=== PATIENT | male | born 1995 | race Caucasian/White ===

== ENCOUNTER 2016-12-25 13:50 | Emergency (ER) | payer OTHER ==
[~2016-12-25] VITALS: Ht 180.3 cm; Wt 85.4 kg
[2016-12-25 13:52] VITALS: Ht 180.3 cm; Wt 85.4 kg
[2016-12-25] MEDS ORDERED: PRED20TA2 PO (14:04)
[2016-12-25] MEDS ORDERED: KETOROLAC TROMETHAMINE 30 MG/ML VIAL IV STA (14:35)
[2016-12-25] MEDS ORDERED: SODIUM CHLORIDE 0.9% 1000ML 1,000 ML IV STA (14:35)
[2016-12-25] MEDS ORDERED: HYDROCODONE/HOMATROPINE SYRUP 5MG/1.5MG 5ML UDP PO STA (14:35)
--- NOTE | 2016-12-25 14:36 | EMERGENCY ROOM VISIT NOTE ---
History Report prepared by Scribe: Carmella Mansfield Under the Supervision of: Dr. Fawad Coker M.D. First contact with patient: 14:09 Chief Complaint: FEVER Stated Complaint: FEVER, VOMITING, HEAD PAIN/CONGESTION, DIARRHEA Nursing Triage Summary: Pt. reports a fever that started Monday, vomiting started and diarrhea started on Monday. States unable to keep down fluids or solids, has blood with "spitting up or coughing" and "general pain from throat and up". History of Present Illness The patient is a 21 year old male who presents to the Emergency Room with complaints of an intermittent fever for the past 5 days. He states he was "sitting at home working" when he first noticed his fever. He has not taken any medication for the fever yet. He also complains of vomiting that started 4 days ago, and diarrhea that started 3 days ago. He has been unable to keep down fluids or solids and reports he has been "spitting up" and "coughing up" blood. He denies any hematemesis. The patient also admits to a sore throat, cough and headache. He still has full ROM of his neck and can touch his chin to his chest , but reports his neck is "sore" when he moves it from side to side. He denies any acute abdominal pain. The patient denies any recent heavy ETOH use. He reports he experienced a tear in his esophagus 2 years ago after a sinus infection and reports he has experienced multiple sinus infections in his life. Source of History: patient Onset: 5 days [employer] Position: other (global) Timing: other (persistent) Associated Symptoms: + headache, + sorethroat, + cough, + neck pain, + vomiting, + diarrhea, No abdominal pain Review of Systems See HPI for pertinent positives & negatives. A total of 10 systems reviewed and were otherwise negative. Past Medical & Surgical Medical Problems: (1) Heart murmur (2) Sinus infection Social History Smoking Status: Never Smoker Smokeless Tobacco Use: No Alcohol Use: occasionally Drug Use: none Marital Status: single Housing Status: lives with roommate Occupation Status: [employer] Current/Historical Medications Scheduled Doxycycline Monohydrate (Monodox), 100 MG PO BID Hydrocodone W/ Homatropine (Hycodan 5/1.5MG 5 Ml), 5 ML PO HS Ondasetron Odt (Zofran Odt), 4 MG SL Q6H Prednisone (Prednisone Tab), 20 MG PO BID Allergies Coded Allergies: No Known Allergies (Unverified , 12/25/16) Physical Exam Vital Signs Date Time Temp Pulse Resp B/P (MAP) Pulse Ox O2 Delivery O2 Flow Rate FiO2 12/25/16 18:41 36.8 89 18 136/71 97 12/25/16 17:57 87 22 134/75 94 Room Air 12/25/16 16:31 98 22 131/64 96 Room Air 12/25/16 15:43 100 12/25/16 15:39 36.8 102 22 136/73 96 Room Air 12/25/16 15:39 96 Room Air 12/25/16 13:52 37.7 116 18 141/67 97 Room Air Physical Exam GENERAL: Patient is a healthy-appearing well-nourished 21 year old male. HEAD: Normocephalic atraumatic EYES: Ocular movements intact pupils equal and react to light OROPHARYNX: mucous membranes are moist no exudates present no erythema or edema present NECK: Supple no nuchal rigidity. No evidence of meningitis or encephalitis on exam. CHEST: Good equal expansion LUNGS: Clear and equal to auscultation CARDIAC: Normal S1 and S2 ABDOMEN: Soft nontender no guarding BACK: No CVA tenderness EXTREMITIES: No pain upon palpation normal muscle strength in all groups no clubbing cyanosis or edema NEURO: Patient is following commands is answering questions appropriately. Alert and oriented x3 Cranial Nerves 2-12 grossly intact Medical Decision & Procedures ER Provider Diagnostic Interpretation: X-ray results as stated below per interpretation by me and the radiologist: CHEST ONE VIEW PORTABLE CLINICAL HISTORY: Shortness of breath COMPARISON STUDY: No previous studies for comparison. FINDINGS: The cardiac and mediastinal contours are normal. There is no evidence of focal pulmonary consolidation. There is no evidence of failure. No pleural effusions are visualized. IMPRESSION: No active disease in the chest. Electronically signed by: Osiel Iqbal M.D. 12/25/2016 3:01 PM Laboratory Results 12/25/16 15:20 Red Blood Count 4.83, Mean Corpuscular Volume 83.9, Mean Corpuscular Hemoglobin 29.2, Mean Corpuscular Hemoglobin Concent 34.8, Mean Platelet Volume 9.8, Neutrophils (%) (Auto) 62.2, Lymphocytes (%) (Auto) 14.4, Monocytes (%) (Auto) 22.8, Eosinophils (%) (Auto) 0.2, Basophils (%) (Auto) 0.2, Neutrophils # (Auto ) 5.29, Lymphocytes # (Auto) 1.23, Monocytes # (Auto) 1.94, Eosinophils # (Auto ) 0.02, Basophils # (Auto) 0.02 12/25/16 15:20 Test 12/25/16 15:20 12/25/16 16:20 White Blood Count 8.52 K/uL (4.8-10.8) Red Blood Count 4.83 M/uL (4.7-6.1) Hemoglobin 14.1 g/dL (14.0-18.0) Hematocrit 40.5 % (42-52) Mean Corpuscular Volume 83.9 fL (80-100) Mean Corpuscular Hemoglobin 29.2 pg (25-34) Mean Corpuscular Hemoglobin Concent 34.8 g/dl (32-36) Platelet Count 240 K/uL (130-400) Mean Platelet Volume 9.8 fL (7.4-10.4) Neutrophils (%) (Auto) 62.2 % Lymphocytes (%) (Auto) 14.4 % Monocytes (%) (Auto) 22.8 % Eosinophils (%) (Auto) 0.2 % Basophils (%) (Auto) 0.2 % Neutrophils # (Auto) 5.29 K/uL (1.4-6.5) Lymphocytes # (Auto) 1.23 K/uL (1.2-3.4) Monocytes # (Auto) 1.94 K/uL (0.11-0.59) Eosinophils # (Auto) 0.02 K/uL (0-0.5) Basophils # (Auto) 0.02 K/uL (0-0.2) RDW Standard Deviation 38.8 fL (36.4-46.3) RDW Coefficient of Variation 12.7 % (11.5-14.5) Immature Granulocyte % (Auto) 0.2 % Immature Granulocyte # (Auto) 0.02 K/uL (0.00-0.02) Anion Gap 9.0 mmol/L (3-11) Est Creatinine Clear Calc Drug Dose 112.1 ml/min Estimated GFR () 109.9 Estimated GFR (Non- 94.8 BUN/Creatinine Ratio 8.8 (10-20) Calcium Level 8.6 mg/dl (8.5-10.1) Total Bilirubin 0.7 mg/dl (0.2-1) Direct Bilirubin 0.2 mg/dl (0-0.2) Aspartate Amino Transf (AST/SGOT) 23 U/L (15-37) Alanine Aminotransferase (ALT/SGPT) 28 U/L (12-78) Alkaline Phosphatase 63 U/L (45-117) Total Creatine Kinase 114 U/L (39-308) Total Protein 8.3 gm/dl (6.4-8.2) Albumin 3.7 gm/dl (3.4-5.0) Lyme Disease IgG Antibody POS (NEG) Monoscreen NEG (NEG) Influenza Type A (RT-PCR) Neg for Influ A (NEG) Influenza Type A Antigen Neg for Influ A (NEG) Influenza Type B Antigen Neg for Influ B (NEG) Influenza Type B (RT-PCR) Neg for Influ B (NEG) Urine Color DK YELLOW Urine Appearance CLEAR (CLEAR) Urine pH 5.5 (4.5-7.5) Urine Specific [place] 1.023 (1.000-1.030) Urine Protein TRACE (NEG) Urine Glucose (UA) NEG (NEG) Urine Ketones TRACE (NEG) Urine Occult Blood 2+ (NEG) Urine Nitrite NEG (NEG) Urine Bilirubin NEG (NEG) Urine Urobilinogen NEG (NEG) Urine Leukocyte Esterase NEG (NEG) Urine WBC (Auto) 1-5 /hpf (0-5) Urine RBC (Auto) 0-4 /hpf (0-4) Urine Hyaline Casts (Auto) 5-10 /lpf (0-5) Urine Epithelial Cells (Auto) 5-10 /lpf (0-5) Urine Bacteria (Auto) NEG (NEG) Labs reviewed by ED physician. Medications Administered Medications (Trade) Dose Ordered Sig/Rola Route Start Time Stop Time Status Last Admin Dose Admin Sodium Chloride 1,000 ml @ 999 mls/hr Q1H1M STAT IV 12/25/16 14:35 12/25/16 15:35 DC 12/25/16 15:25 999 MLS/HR Ketorolac Tromethamine (Toradol Inj) 30 mg NOW STAT IV 12/25/16 14:35 12/25/16 14:38 DC 12/25/16 15:25 30 MG Hydrocodone Bit/ Homatropine Methylb (Hycodan Syrup) 5 ml NOW STAT PO 12/25/16 14:35 12/25/16 14:38 DC 12/25/16 15:26 5 ML Acetaminophen (Tylenol Tab) 1,000 mg NOW STAT PO 12/25/16 15:48 12/25/16 15:49 DC 12/25/16 16:14 1,000 MG Ondansetron HCl (Zofran Inj) 4 mg NOW STAT IV 12/25/16 15:48 12/25/16 15:49 DC 12/25/16 16:14 4 MG Miscellaneous Medication (Gi Cocktail) 24 ml NOW STAT PO 12/25/16 15:58 12/25/16 16:00 DC 12/25/16 15:58 24 ML Famotidine (Pepcid Tab) 20 mg NOW STAT PO 12/25/16 15:58 12/25/16 16:00 DC 12/25/16 16:15 20 MG Sucralfate (Carafate Tab) 1 gm NOW STAT PO 12/25/16 15:58 12/25/16 16:00 DC 12/25/16 16:15 1 GM Al Hydroxide/Mg Hydroxide (Maalox Susp) 30 ml STK-MED ONCE .ROUTE 12/25/16 16:09 12/25/16 16:10 DC 12/25/16 16:41 30 ML Lidocaine HCl (Viscous Lidocaine 2% Soln) 20 ml STK-MED ONCE .ROUTE 12/25/16 16:09 12/25/16 16:10 DC 12/25/16 16:42 20 ML Ceftriaxone Sodium (Rocephin Inj) 1 gm NOW STAT IV 12/25/16 16:14 12/25/16 16:15 DC 12/25/16 16:42 1 GM Ceftriaxone Sodium (Rocephin Inj) 1 gm NOW STAT IV 12/25/16 17:22 12/25/16 17:24 DC 12/25/16 17:50 1 GM Hydrocodone Bit/ Homatropine Methylb (Hycodan Elix Homepack 5/1.5MG/ 5ML) 1 homepack UD ONCE PO 12/25/16 17:45 12/25/16 17:46 DC 12/25/16 18:40 1 [facility] ED Course 1423: Past medical records reviewed. The patient was evaluated in room B5. A complete history and physical examination was performed. 1430: I offered to call the patients parents to let them know he is here. The patient declined and stated "my Mom already knows I'm here". 1435: Hycodan Syrup 5 ml PO, Toradol 30 mg IV, NSS 1000 ml @ 999 mls/hr IV. Medical Decision Medication Reconciliation: I attest that I have personally reviewed the patient' s current medication list. Blood Pressure Screening: Patient was found to have an elevated blood pressure and was referred to their primary care doctor for recheck and further treatment Prior records/ancillary studies reviewed. Triage Nursing notes reviewed. The patient's history was concerning for fever. Differential diagnosis: Etiologies such as viral syndrome, otitis, pharyngitis, pneumonia, influenza, meningitis, urinary tract infection, sepsis, bacteremia, as well as others were entertained. This is a 21-year-old male who presents emergency department complaining of throat pain. I will note that the patient is able to swallow his own saliva and denies any chest pain or shortness of breath. In the emergency department IV was established, patient given normal saline bolus, Toradol, Zofran. He is also given a GI cocktail Pepcid and Carafate. Repeat examination revealed improvement patient's symptoms. The patient does not have an elevation in his white blood count cell count has a normal hemoglobin. The patient has no evidence of meningitis encephalitis on examination. He was also given Hycodan for his throat pain. The patient has a negative mono negative flu however he has a positive IgG Lyme titer. I discussed this with the patient who was not aware of this. Based on this the patient was given 2 g of Rocephin and I will start the patient on doxycycline pending western blot analysis. I stressed the need to follow up with infectious disease with the patient. I do believe he is well enough to be discharged home. I did offer to call this patient's parents however he refused. Patient was in agreement with the treatment plan. Impression Primary Impression: Fever Additional Impression: Pharyngitis Scribe Attestation The scribe's documentation has been prepared under my direction and personally reviewed by me in its entirety. I confirm that the note above accurately reflects all work, treatment, procedures, and medical decision making performed by me. Departure Information Dispostion Home / Self-Care Prescriptions Hydrocodone W/ Homatropine (HYCODAN 5/1.5MG 5 ML) 1 Syp Syp 5 ML PO HS, #120 ML Prov: Fawad Coker MD 12/25/16 Ondasetron Odt (ZOFRAN ODT) 4 Mg Tab 4 MG SL Q6H for Nausea, #6 TAB Prov: Fawad Coker MD 12/25/16 Doxycycline Monohydrate (Monodox) 100 Mg Cap 100 MG PO BID for 21 Days, #42 CAP Prov: Fawad Coker MD 12/25/16 Referrals No Doctor, Assigned (PCP) Patient Instructions My [facility] Problem Qualifiers Primary Impression: Fever Fever type: unspecified Qualified Codes: R50.9 - Fever, unspecified Additional Impression: Pharyngitis Pharyngitis/tonsillitis etiology: unspecified etiology Qualified Codes: J02.9 - Acute pharyngitis, unspecified
--- NOTE | 2016-12-25 15:02 | DIAGNOSTIC IMAGING REPORT ---
CHEST ONE VIEW PORTABLE CLINICAL HISTORY: Shortness of breath COMPARISON STUDY: No previous studies for comparison. FINDINGS: The cardiac and mediastinal contours are normal. There is no evidence of focal pulmonary consolidation. There is no evidence of failure. No pleural effusions are visualized.[ IMPRESSION: No active disease in the chest. Electronically signed by: Osiel Iqbal M.D. 12/25/2016 3:01 PM Dictated Date/Time: 12/25/2016 3:01 PM
[2016-12-25 15:39] VITALS: O2SAT 96
[2016-12-25] MEDS ORDERED: ACETAMINOPHEN 500 MG TAB PO STA (15:48)
[2016-12-25] MEDS ORDERED: ONDANSETRON INJ 2 MG/ML 2 ML VIAL IV STA (15:48)
[2016-12-25 15:51] LABS: BASO % 0.2 %; BASO ABS # 0.02 K/uL (0-0.2); COMPLETE YES; EOS % 0.2 %; HEMATOCRIT 40.5 % (42-52); IG% 0.2 %; LYMPH % 14.4 %; LYMPH ABS # 1.23 K/uL (1.2-3.4); MEAN CELL VOLUME 83.9 fL (80-100); MEAN CORPUSCULAR HEMOGLOBIN 29.2 pg (25-34); MEAN CORPUSCULAR HGB CONC 34.8 g/dl (32-36); MEAN PLATELET VOLUME 9.8 fL (7.4-10.4); MONO % 22.8 %; NEUT % 62.2 %; PLATELET COUNT 240 K/uL (130-400); RED BLOOD COUNT 4.83 M/uL (4.7-6.1); WHITE BLOOD COUNT 8.52 K/uL (4.8-10.8)
[2016-12-25] MEDS ORDERED: SUCRALFATE 1 GM TAB PO STA (15:58)
[2016-12-25] MEDS ORDERED: GI COCKTAIL PO STA (15:58)
[2016-12-25] MEDS ORDERED: FAMOTIDINE 20 MG TAB PO STA (15:58)
[2016-12-25 16:09] LABS: BUN/CREATININE RATIO 8.8 (10-20); CALCIUM 8.6 mg/dl (8.5-10.1); CREATININE 1.1 mg/dl (0.60-1.40); POTASSIUM 3.6 mmol/L (3.5-5.1)
[2016-12-25] MEDS ORDERED: LIDOCAINE HCL 2% VISC SOLN 20 ML UDC ONE (16:09)
[2016-12-25] MEDS ORDERED: ALUMINUM/MAGNESIUM SUSP 30 ML UDC ONE (16:09)
[2016-12-25] MEDS ORDERED: CEFTRIAXONE SOD INJ 1 GM ADDVIAL IV STA ×2 (16:14→17:22)
[2016-12-25 16:39] LABS: URINE APPEARANCE CLEAR (CLEAR); URINE COLOR DK YELLOW; URINE NITRITE NEG (NEG); URINE PH 5.5 (4.5-7.5); URINE SPECIFIC GRAVITY 1.023 (1.000-1.030); UROBILINOGEN NEG (NEG)
[2016-12-25 16:41] LABS: MANUAL MICROSCOPIC REQUIRED? NO; REVIEW REQ? NO; URINE BILIRUBIN NEG (NEG)
[2016-12-25 17:13] LABS: LYME DISEASE AB IGM NEG (NEG)
[2016-12-25 17:18] LABS: LYME DISEASE AB IGG POS (NEG)
[2016-12-25] MEDS ORDERED: ONDA4TAB10 SL (17:33)
[2016-12-25] MEDS ORDERED: DOXY100C76 PO (17:33)
[2016-12-25] MEDS ORDERED: HYDR5SYP11 PO (17:43)
[2016-12-25] MEDS ORDERED: HYCODAN 60ML BOTTLE HOMEPACK PO ONE (17:45)
[2016-12-25 18:41] VITALS: BP 136/71; PULSE 89; TEMP 36.8; O2SAT 97
[2016-12-25 19:00] LABS: INFLUENZA A PCR Neg for Influ A (NEG); INFLUENZA B PCR Neg for Influ B (NEG)
--- NOTE | 2016-12-27 15:51 | Pharmacy Progress Note ---
ED Pharmacist Culture FollowUp Date of Service: Dec 27, 2016. Patient's back-up Grp A Strep Cx finalized today and is growing Group C Strep. He was seen on 12/25 for c/o fever, NVD, cough and throat pain. He was dx with Lyme dz based upon stage one IgG Ab positive test, Western Blot is still pending. He was discharged with a 21 day course of Doxycycline 100mg PO BID. He was also dx with pharnygitis that day - likely viral, but if bacterial Doxy may also cover. Grp C Strep can cause pharyngitis indistinguishable from GAS pharyngitis. However this organism can also colonize the oral mucosa and is not always pathogenic, thus isolation from throat cx is of uncertain significance. Doxycycline is not the drug of choice to treat Grp C Strep, however it may cover the organism as per the references I consulted, resistance rates have been reported at ~17%. I contacted the patient at home to discuss his symptoms. He states the sore throat is gone. He is still taking the Doxycycline. He feels improved since the day he visited the ER. Based upon this I believe no further action is required from ER perspective. Advised the patient to continue the Doxycycline as the confirmatory test for Lyme Dz is still pending.
[2016-12-29 11:05] LABS: 18KDIGG BAND NONREACTIVE (NONREACTIVE); 23KDIGG BAND NONREACTIVE (NONREACTIVE); 23KDIGM BAND NONREACTIVE (NONREACTIVE); 28KDIGG BAND NONREACTIVE (NONREACTIVE); 30KDIGG BAND NONREACTIVE (NONREACTIVE); 39KDIGG BAND NONREACTIVE (NONREACTIVE); 39KDIGM BAND NONREACTIVE (NONREACTIVE); 41KDIGG BAND REACTIVE (NONREACTIVE); 41KDIGM BAND NONREACTIVE (NONREACTIVE); 45KDIGG BAND NONREACTIVE (NONREACTIVE); 58KDIGG BAND NONREACTIVE (NONREACTIVE); 66KDIGG BAND REACTIVE (NONREACTIVE); 93KDIGG BAND NONREACTIVE (NONREACTIVE)
[2016-12-30 19:31] LABS: EHRLICHIA CHAFF IGG AB <1:64 (<1:64); EHRLICHIA CHAFF IGM AB <1:20 (<1:20)
== END 2016-12-25 18:40 | disposition home or self-care (01) ==
LOC: C.EDB 13:52
DX: R50.9 Fever, unspecified (principal); J02.9 Acute pharyngitis, unspecified; R01.1 Cardiac murmur, unspecified

== ENCOUNTER → 2017-01-24 | Outpatient (CLI) | payer OTHER ==
[~2017-01-24] MED LIST: ONDA4TAB10 SL; PRED20TA2 PO
[2017-01-24 15:52] LABS: LYME DISEASE AB IGM NEG (NEG)
[2017-01-24 15:53] LABS: LYME DISEASE AB IGG POS (NEG)
[2017-01-31 14:55] LABS: 18KDIGG BAND REACTIVE (NONREACTIVE); 23KDIGG BAND REACTIVE (NONREACTIVE); 23KDIGM BAND REACTIVE (NONREACTIVE); 28KDIGG BAND NONREACTIVE (NONREACTIVE); 30KDIGG BAND NONREACTIVE (NONREACTIVE); 39KDIGG BAND REACTIVE (NONREACTIVE); 39KDIGM BAND NONREACTIVE (NONREACTIVE); 41KDIGG BAND REACTIVE (NONREACTIVE); 41KDIGM BAND NONREACTIVE (NONREACTIVE); 45KDIGG BAND NONREACTIVE (NONREACTIVE); 58KDIGG BAND REACTIVE (NONREACTIVE); 66KDIGG BAND REACTIVE (NONREACTIVE); 93KDIGG BAND NONREACTIVE (NONREACTIVE)
[2017-02-01 15:38] LABS: ANAPLASMA PHAGOCYTOPHIL IGM <1:20 (<1:20); ANAPLASMA PHAGOCYTOPHIL INTERP Past Infection
== END | disposition home or self-care (01) ==
LOC: C.LAB1850 13:56
PROVIDERS: ATTEND Internal Medicine Infectious Disease
DX: A69.20 Lyme disease, unspecified (principal)